=== PATIENT | female | born 1980 | race Caucasian/White ===

== ENCOUNTER 2016-11-28 11:27 | Emergency (ER) | payer OTHER ==
[~2016-11-28] VITALS: Ht 160 cm; Wt 56.7 kg
[~2016-11-28 11:27] MED LIST: ABILIFY; ATARAX PO; BENTYL10 MG; HYDROCODONE-APA1 T57 PO; LEXAPRO20 MG PO; NEURONTIN PO; NEURONTIN800 MG PO; PHENERGAN; PRILOSEC; PRISTIQ50 MG PO; REMERON; THORAZINE PO; VITAMIN D; VOLTAREN75 MG PO
== END 2016-11-28 12:20 | disposition home or self-care (01) ==
LOC: CFTX 11:27 → CED 11:27 → CFTX 12:20
DX: K08.89 Other specified disorders of teeth and supporting structures (principal); K21.9 Gastro-esophageal reflux disease without esophagitis; F17.200 Nicotine dependence, unspecified, uncomplicated; Z88.0 Allergy status to penicillin; Z79.899 Other long term (current) drug therapy
CPT/HCPCS: 99282